=== PATIENT | female | born 1980 | race Caucasian/White ===

== ENCOUNTER 2018-07-16 20:40 | Emergency (ER) | payer OTHER ==
[~2018-07-16] VITALS: Ht 180.3 cm; Wt 131.5 kg
[2018-07-16 21:19] VITALS: BP 113/72
[2018-07-16] MEDS ORDERED: LIDOCAINE 1%-EPI 1:100,000 20 ML VIAL ONE (21:58)
[2018-07-16] MEDS ORDERED: TDAP [DIPH/PERTUSSIS/TET] 0.5 ML VIAL IM ONE ×2 (21:59→22:00)
--- NOTE | 2018-07-16 22:13 | NUR ---
VERBAL ORDER FROM [facility] [facility] WITH EPI 1% AT BEDSIDE FOR SUTURING.
--- NOTE | 2018-07-16 22:14 | NUR ---
Adeel MCGHEE PAC IS AT THE BEDSIDE SUTURING PT'S RT BELOW KNEE LAC.
--- NOTE | 2018-07-16 22:35 | NUR ---
Patient discharged to home in stable condition. Written and verbal after care instructions given. Patient verbalizes understanding of instruction. PT AMBULATED OUT WITH A STEADY GAIT. VSS.
[2018-07-16] MEDS ORDERED: LIDOCAINE 1%-EPI 1:100,000 20 ML VIAL TP ONE (23:00)
== END 2018-07-16 22:42 | disposition home or self-care (01) ==
LOC: ER 20:45
DX: S81.011A Laceration without foreign body, right knee, initial encounter (principal); W01.0XXA Fall on same level from slipping, tripping and stumbling without subsequent striking against object, initial encounter; Y93.89 Activity, other specified; Y92.89 Other specified places as the place of occurrence of the external cause; Y99.8 Other external cause status
CPT/HCPCS: 12002; 90471; 90715; 99283; A6402 ×2; J3490